=== PATIENT | male | born 1995 | race Caucasian/White ===

== ENCOUNTER 2025-10-09 20:53 | Emergency (ER) | payer BC, OTHER ==
[2025-10-09 21:18] LABS: #Basophils 0.04 10x3/uL (0.0-0.2); #Eosinophils 0.06 10x3/uL (0.0-0.7); #Monocytes 0.73 10x3/uL (0.11-0.59); #Neutrophils 7.28 10x3/uL (1.40-6.50); %Basophils 0.4 % (0.0-1.0); %Eosinophils 0.6 % (0.0-10.0); %Lymphocytes 17.6 % (21.0-51.0); %Monocytes 7.4 % (0.0-10.0); %Neutrophils 73.3 % (42.0-75.0); Hematocrit 43.5 % (42.0-52.0); Hemoglobin 14.6 g/dL (14.0-18.0); Mean Corpuscular Hemoglobin 26.7 pg (27.0-31.0); Mean Corpuscular Volume 79.5 fL (78.0-98.0); Platelet Count 315 10x3/uL (130-400); Red Blood Cell (RBC) Count 5.47 mill/uL (4.70-6.10); White Blood Cell (WBC) Count 9.93 10x3/uL (4.8-10.8)
[2025-10-09 21:34] LABS: ALT (SGPT) 29 U/L (Less than 45); AST (SGOT) 31 U/L (11-34); Albumin 4.7 g/dL (3.1-4.5); Alkaline Phosphatase 83 U/L (40-110); Anion Gap 16 mmol/L (10-20); BUN (Urea Nitrogen) 18 mg/dL (8.9-20.6); Bilirubin, Total 0.2 mg/dL (0.3-1.2); Calc. Creatinine Clearance 0 mL/min (70-130); Calcium 9.4 mg/dL (7.8-10.44); Carbon Dioxide 22 mmol/L (22-29); Chloride 107 mmol/L (98-107); Globulin 3.2 g/dL (2.4-3.5); Glucose 102 mg/dL (70-105); Potassium 4.2 mmol/L (3.5-5.1); Sodium 141 mmol/L (136-145)
== END 2025-10-09 23:00 | disposition home or self-care (01) ==
LOC: ERS 20:53
DX: S16.1XXA Strain of muscle, fascia and tendon at neck level, initial encounter (principal); S60.512A Abrasion of left hand, initial encounter; V48.5XXA Car driver injured in noncollision transport accident in traffic accident, initial encounter
CPT/HCPCS: 70450; 71260; 72125; 74177; 80053; 85025; 90471; 90715; 96374; J3010